=== PATIENT | male | born 1960 | race Caucasian/White ===

== ENCOUNTER 2021-08-07 11:15 | Inpatient (IN) | payer OTHER ==
[2021-08-07] MEDS ORDERED: Sodium Chloride 0.9% 10 ML Syringe FLUSH PRN (11:25)
[2021-08-07] MEDS ORDERED: Lactated Ringers 1,000 ML IV SCH (11:30)
[2021-08-07] MEDS ORDERED: Ketorolac 30 MG/ML SDV IVPUSH ONE (11:49)
[2021-08-07] MEDS ORDERED: Sodium Chloride 0.9% 75 ML IV SCH (12:30)
[2021-08-07] MEDS ORDERED: Iopamidol 612 MG/ML 100 ML Bottle IV SCH (12:30)
[2021-08-07] MEDS ORDERED: Ondansetron 4 MG/2 ML SDV IVPUSH PRN (15:17)
[2021-08-07] MEDS ORDERED: Scopolamine 1.5 MG Transdermal Patch TOP PRN (15:17)
[2021-08-07] MEDS ORDERED: Promethazine 12.5 MG in Sodium Chloride 0.9% 50 ML IV PRN (15:18)
[2021-08-07] MEDS ORDERED: Promethazine 25 MG in Sodium Chloride 0.9% 50 ML IV PRN (15:21)
[2021-08-07] MEDS ORDERED: diphenhydrAMINE 50 MG/ML SDV IV PRN ×2 (15:22)
[2021-08-07] MEDS ORDERED: diphenhydrAMINE 25 MG Cap PO PRN (15:23)
[2021-08-07] MEDS ORDERED: Morphine 2 MG/ML SYRINGE IV PRN ×2 (15:24)
[2021-08-07] MEDS ORDERED: Morphine 4 MG/ML Syringe IV PRN ×2 (15:25→15:31)
[2021-08-07] MEDS ORDERED: fentaNYL 50 MCG/ML SDV IV PRN ×3 (15:27→15:29)
[2021-08-07] MEDS ORDERED: Sodium Chloride 0.9% 1,000 ML IV SCH (15:30)
[2021-08-07] MEDS ORDERED: Acetaminophen 325 MG Tab PO PRN (19:57)
[2021-08-07 20:58] LABS: CORONAVIRUS COVID-19 NAA NEGATIVE (NEGATIVE)
[2021-08-08] MEDS ORDERED: Ondansetron 4 MG/2 ML SDV ONE (07:28)
[2021-08-08] MEDS ORDERED: Propofol 200 MG/20 ML SDV ONE (07:28)
[2021-08-08] MEDS ORDERED: Neostigmine Methylsulfate 1 MG/ML 5 ML Syringe ONE (07:28)
[2021-08-08] MEDS ORDERED: Glycopyrrolate 0.2 MG/ML 5 ML MDV ONE (07:28)
[2021-08-08] MEDS ORDERED: fentaNYL 250 MCG/5 ML SDV ONE ×2 (07:28→10:55)
[2021-08-08] MEDS ORDERED: Succinylcholine 200 MG/10 ML MDV ONE (07:28)
[2021-08-08] MEDS ORDERED: Dexamethasone 4 MG/ML SDV ONE (07:28)
[2021-08-08] MEDS ORDERED: Rocuronium 50 MG/5 ML Vial ONE (07:28)
[2021-08-08] MEDS ORDERED: Bupivacaine 0.5%/EPINEPHrine 1:200,000 50 ML MDV ONE (07:36)
[2021-08-08] MEDS ORDERED: VERIFY SCOP PATCH TOP SCH (09:00)
[2021-08-08] MEDS ORDERED: metroNIDAZOLE/Normal Saline 500 MG in Premix Bag 1 BAG IV ONE (10:15)
[2021-08-08] MEDS ORDERED: ceFAZolin 2 GM in Premix Bag 1 BAG IV ONE (10:15)
[2021-08-08] MEDS ORDERED: Ketorolac 30 MG/ML SDV ONE (11:14)
[2021-08-08] MEDS ORDERED: fentaNYL 100 MCG/2 ML SDV IVPUSH PRN (11:34)
[2021-08-08] MEDS ORDERED: Acetaminophen/HYDROcodone 325-5 MG Tab PO PRN (12:39)
== END 2021-08-08 13:30 | disposition home or self-care (01) | DRG 355 ==
LOC: JP.ED 11:15 → JP.MS 13:46
PROVIDERS: ADMIT Surgery; ATTEND Surgery
PROC: 0WUF4JZ Supplement Abdominal Wall with Synthetic Substitute, Percutaneous Endoscopic Approach (ICD-10-PCS; principal; 2021-08-08)
PROC: 0W9G4ZZ Drainage of Peritoneal Cavity, Percutaneous Endoscopic Approach (ICD-10-PCS; 2021-08-08)
DX: K46.0 Unspecified abdominal hernia with obstruction, without gangrene (principal); D72.829 Elevated white blood cell count, unspecified; I10 Essential (primary) hypertension; Z20.822 Contact with and (suspected) exposure to COVID-19
CPT/HCPCS: 0241U; 36415; 74177; 80048; 80053; 81001; 82040; 82150; 82945; 83605; 83615; 83986; 84157; 85025; 85027; 86140; 87015; 87070; 87102; 87116; 87205; 87206; 87220; 89050; 96374; 99285; 99285-25; A9270-GY; C1781; J0171; J0330; J0690; J1100; J1885; J2405; J2704; J2710; J2795; J3010; J3490; J7030; J7120; Q9967

== ENCOUNTER 2022-12-23 11:33 | Emergency (ER) | payer BC, OTHER ==
[2022-12-23] MEDS ORDERED: Sodium Chloride 0.9% 10 ML Syringe FLUSH PRN (11:40)
[2022-12-23 11:52] LABS: BASOPHILS ABSOLUTE AUTO 0.05 K/uL (0.00-0.10); BASOPHILS PERCENT AUTO 0.5 % (0.1-1.3); EOSINOPHILS ABSOLUTE AUTO 0.16 K/uL (0.00-0.40); EOSINOPHILS PERCENT AUTO 1.5 % (0.0-5.4); HEMOGLOBIN 11.6 g/dL (12.9-16.9); LYMPHOCYTES ABSOLUTE AUTO 2.09 K/uL (0.8-3.3); LYMPHOCYTES PERCENT AUTO 19.9 % (11.4-47.7); MEAN CORPUSCULAR HGB CONC 34.1 g/dL (31.6-35.5); MEAN CORPUSCULAR VOLUME 90.9 fL (81.4-99.0); MONOCYTES ABSOLUTE AUTO 0.76 K/uL (0.20-0.90); MONOCYTES PERCENT AUTO 7.3 % (3.3-12.6); NEUTROPHILS ABSOLUTE AUTO 7.32 K/uL (1.0-7.6); NEUTROPHILS PERCENT AUTO 69.8 % (40.0-78.1); PLATELET COUNT,PLT 176 K/uL (130-375); RED BLOOD CELL COUNT 3.74 M/uL (4.14-5.76); WHITE BLOOD CELL COUNT,WBC 10.5 K/uL (3.2-11.0)
[2022-12-23 11:53] LABS: BASE EXCESS VENOUS -2.2 mm/L; BICARBONATE,VENOUS 21.3 mmol/L; CARBOXYHEMOGLOBIN 2.5 % (0.0-1.6); METHEMOGLOBIN 1.3 %; OXYHEMOGLOBIN 90.4 %; PCO2 VENOUS 33.3 mm/Hg; PH,VENOUS 7.422 (7.350-7.450); PO2 VENOUS 69.6 mm/Hg
[2022-12-23 11:54] LABS: TOTAL HEMOGLOBIN 11.7 g/dL (13.5-18.0)
[2022-12-23] MEDS ORDERED: Sodium Chloride 0.9% 10 ML Syringe FLUSH ONE (11:58)
[2022-12-23] MEDS ORDERED: Iopamidol 755 Mg/ML 100 ML Bottle IV ONE (11:58)
[2022-12-23] MEDS ORDERED: Sodium Chloride 0.9% 75 ML IV ONE (11:58)
[2022-12-23 12:15] LABS: INR 1.1; PTT,PARTIAL THROMBOPLSTIN TIME 19.6 sec (21.8-27.3)
[2022-12-23] MEDS ORDERED: Sodium Chloride 0.9% 1,000 ML IV SCH (12:15)
[2022-12-23 12:30] LABS: A/G RATIO 1.6 (1.2-2.2); ALANINE AMINOTRANSFERASE,ALT 30 U/L (12-78); ALBUMIN 3.9 g/dL (3.4-5.0); ALKALINE PHOSPHATASE 77 U/L (46-116); ASPARTATE AMNIOTRANSFERASE,AST 19 U/L (15-37); BILIRUBIN TOTAL 0.7 mg/dL (0.2-1.0); BLOOD UREA NITROGEN,BUN 14 mg/dL (7-18); CALCIUM 8.5 mg/dL (8.5-10.1); CARBON DIOXIDE,CO2 22 mmol/L (21-32); CHLORIDE,CL 104 mmol/L (100-108); EST CRCL DRUG DOSING (CG) 76.84 mL/min; ESTIMATED GFR 85 mL/min (>60); GLUCOSE RANDOM 147 mg/dL (74-106); POTASSIUM,K 3.6 mmol/L (3.6-5.2); PROTEIN TOTAL,TP 6.4 g/dL (6.4-8.2); SODIUM,NA 138 mmol/L (140-148)
[2022-12-23 12:31] LABS: ANION GAP 15.6 mmol/L (5.0-14.0); MAGNESIUM 1.7 mg/dL (1.8-2.4); TSH ULTRASENSITIVE 2.435 uIU/mL (0.358-3.740)
[2022-12-23] MEDS ORDERED: Aspirin 81 MG Tab.Chew PO ONE (13:28)
[2022-12-23] MEDS ORDERED: Magnesium Oxide 400 MG Tab PO ONE (13:29)
[2022-12-23 14:14] LABS: APPEARANCE,URINE CLEAR (CLEAR); BILIRUBIN,URINE NEGATIVE (NEGATIVE); COLOR,URINE YELLOW (YELLOW); GLUCOSE,URINE NEGATIVE (NEGATIVE); KETONES,URINE 15 mg/dL (NEGATIVE); LEUKOCYTE ESTERASE,URINE NEGATIVE (NEGATIVE); NITRITE,URINE NEGATIVE (NEGATIVE); OCCULT BLOOD,URINE NEGATIVE (NEGATIVE); PROTEIN,URINE NEGATIVE (NEGATIVE); UROBILINOGEN,URINE 0.2 EU/dL (0.2-1.0)
[2022-12-23 14:22] LABS: AMORPHOUS SEDIMENT,URINE NOT SEEN; BACTERIA,URINE FEW; EPITHELIAL CELLS,URINE RARE; MUCUS,URINE NOT SEEN; RBC,URINE 0-5 (0-5); WBC,URINE NOT SEEN (0-5)
[2022-12-23 14:24] LABS: AMPHETAMINES SCREEN, URINE NEGATIVE (NEGATIVE); BARBITURATE SCREEN,URINE NEGATIVE (NEGATIVE); BENZODIAZEPINES SCREEN,URINE NEGATIVE (NEGATIVE); METHADONE SCREEN, URINE NEGATIVE (NEGATIVE); METHAMPHETAMINES SCREEN, URINE NEGATIVE (NEGATIVE); OXYCODONE SCREEN,URINE NEGATIVE (NEGATIVE); PROPOXYPHENE SCREEN,URINE NEGATIVE (NEGATIVE); THC SCREEN,URINE 50 NG/ML NEGATIVE (NEGATIVE)
[2022-12-23] MEDS ORDERED: Ondansetron 4 MG Tab.DIS PO ONE (15:07)
== END 2022-12-23 15:26 | disposition home or self-care (01) ==
LOC: JP.ED 11:33
DX: T43.011A Poisoning by tricyclic antidepressants, accidental (unintentional), initial encounter (principal); R41.0 Disorientation, unspecified; R53.1 Weakness; E83.42 Hypomagnesemia; D64.9 Anemia, unspecified; I10 Essential (primary) hypertension; Z79.82 Long term (current) use of aspirin; Z79.899 Other long term (current) drug therapy
CPT/HCPCS: 36415; 70450; 70496; 70498; 80053; 80305; 81001; 82803; 82947; 83735; 84443; 84484; 85025; 85610; 85730; 87635; 93005; 96360; 96361; 99285; A9270; J3490; J7030; Q0162; Q9967; 93010; 99284; U0002